=== PATIENT | female | born 1995 | race African-American/Black ===

== ENCOUNTER 2018-01-17 21:44 | Emergency (ER) | payer MEDICAID, OTHER ==
[2018-01-17 22:03] LABS: URINE HCG POC HCG NEGATIVE (Negative)
== END 2018-01-17 22:05 | disposition home or self-care (01) ==
LOC: ER 21:44
DX: Z71.1 Person with feared health complaint in whom no diagnosis is made (principal); R11.0 Nausea; Z32.02 Encounter for pregnancy test, result negative
CPT/HCPCS: 81025; 99282